=== PATIENT | female | born 1995 | race Caucasian/White ===

== ENCOUNTER 2018-02-26 15:45 | Emergency (ER) | payer OTHER ==
--- NOTE | 2018-02-26 16:15 | ED ---
Abdominal Pain/Female - HPI Summary HPI Summary: This patient is a 22 year old F presenting to [facility] accompanied by her friend with a chief complaint of intermittent abdominal pain, nausea, vomiting, decreased appetite, and fullness worsening over the past few years; however in the past month she reports worsening symptoms with fatigue and lightheadedness. She reports recent increase in thirst and urination (quantity, not frequency). Her last normal BM was this morning. LNMP began yesterday. Denies fever, diarrhea, rectal bleeding, black stools, and SOB. Patient reports and incomplete workup for her symptoms with a diagnosis of Celiacs. - History of Current Complaint Chief Complaint: EDAbdPain Stated Complaint: ABD PAIN Time Seen by Provider: 02/26/18 16:02 Hx Obtained From: Patient Onset/Duration: Gradual Onset, Other - years Timing: Intermittent Episode Lasting Severity Currently: None Pain Intensity: 0 Location: Diffuse Aggravating Factor(s): Food Alleviating Factor(s): Nothing Associated Signs and Symptoms: Positive: Urinary Symptoms, Decreased Appetite, Nausea, Vomiting. Negative: Blood in Stool Allergies/Adverse Reactions: Allergies Allergy/AdvReac Type Severity Reaction Status Date / Time Sulfa (Sulfonamide Allergy Severe Hives Verified 02/26/18 15:56 Antibiotics) PMH/Surg Hx/FS Hx/Imm Hx Endocrine/Hematology History: Denies: Hx Diabetes Respiratory History: Denies: Hx Asthma GI History: Reports: Other GI Disorders - Celiacs EENT History: Denies: Hx Deafness - Surgical History Surgery Procedure, Year, and Place: none Infectious Disease History: No Infectious Disease History: Denies: Traveled Outside the [place] in Last 30 Days - Family History Known Family History: Positive: Other - peptic ulcers - Social History Occupation: Student Hx Substance Use: No Substance Use Type: Reports: None Hx Tobacco Use: No Smoking Status (MU): Never Smoked Tobacco Review of Systems Constitutional: Other - lightheaded Positive: Fatigue. Negative: Fever Negative: Shortness Of Breath Gastrointestinal: Negative - rectal bleeding Positive: Abdominal Pain, Vomiting, Nausea, Other - decreased appetite. Negative: Diarrhea All Other Systems Reviewed And Are Negative: Yes Physical Exam - Summary Physical Exam Summary: VITAL SIGNS: Reviewed. GENERAL: Patient is a well-developed and nourished female who is lying comfortable in the stretcher. Patient is not in any acute respiratory distress. HEAD AND FACE: No signs of trauma. No ecchymosis, hematomas or skull depressions. No sinus tenderness. EYES: PERRLA, EOMI x 2, No injected conjunctiva, no nystagmus. EARS: Hearing grossly intact. Ear canals and tympanic membranes are within normal limits. MOUTH: Oropharynx within normal limits. NECK: Supple, trachea is midline, no adenopathy, no JVD, no carotid bruit, no c- spine tenderness, neck with full ROM. CHEST: Symmetric, no tenderness at palpation LUNGS: Clear to auscultation bilaterally. No wheezing or crackles. CVS: Tachycardic rate and regular rhythm, S1 and S2 present, no murmurs or gallops appreciated. ABDOMEN: Soft, non-tender. No signs of distention. No rebound no guarding, and no masses palpated. Bowel sounds are normal. EXTREMITIES: FROM in all major joints, no edema, no cyanosis or clubbing. NEURO: Alert and oriented x 3. No acute neurological deficits. Speech is normal and follows commands. SKIN: Dry and warm Triage Information Reviewed: Yes Vital Signs On Initial Exam: Initial Vitals Temp Pulse Resp BP Pulse Ox 98.0 F 90 16 129/81 98 02/26/18 15:52 02/26/18 15:52 02/26/18 15:52 02/26/18 15:52 02/26/18 15:52 Vital Signs Reviewed: Yes Diagnostics - Vital Signs Vital Signs Temp Pulse Resp BP Pulse Ox 02/26/18 15:52 98.0 F 90 16 129/81 98 - Laboratory Result Diagrams: 02/26/18 16:29 02/26/18 16:29 Lab Statement: Any lab studies that have been ordered have been reviewed, and results considered in the medical decision making process. - Radiology Abdomen XR Radiology Interpretation Completed By: Radiologist - NONSPECIFIC BOWEL GAS PATTERN. LARGE AMOUNT OF STOOL THROUGHOUT THE COLON. ED Physician has reviewed this report. Abdominal Pain Fem Course/Dx - Course Course Of Treatment: This patient is a 22 year old F presenting to [facility] accompanied by her friend with a chief complaint of intermittent abdominal pain , nausea, vomiting, decreased appetite, and fullness worsening over the past few years; however in the past month she reports worsening symptoms with fatigue and lightheadedness. She reports recent increase in thirst and urination (quantity, not frequency). Her last normal BM was this morning. LNMP began yesterday. Denies fever, diarrhea, rectal bleeding, black stools, and SOB. Patient reports and incomplete workup for her symptoms with a diagnosis of Celiacs. In the ED course the patient was given IV fluids I also ordered Zofran for the nausea. Patient refused this offer. Patient reports that she doesnt want to take any medications. I had a long conversation with the patient that she came into the emergency room because of nausea vomiting however she does want to take any medications to stop the nausea and vomiting. The patient understands however she refused to take the medication. Blood work without any significant abnormality. Urinalysis negative for UTI. She stated complaint of headache therefore she was given Toradol and she took the medication. Note the patient is feeling better. She is eating and drinking and she has no other complaints. X-ray of the abdomen impression: Constipation. Therefore the patient was encouraged to take stool softeners and she understands and agrees. She also agrees to the Prescription for Zofran. At this point since the patient is eating and drinking without any nausea vomiting she will be discharged home with follow-up with primary care physician. Patient is hemodynamically stable alert and oriented 3. I discussed all the findings and test results with the patient. Patient was instructed to return to the emergency room immediately if any of the symptoms return or worsens. Plan of care was discussed with the patient and understands and agrees. All questions were answered at patient satisfaction. There were no further complaints or concerns. Lung exam before discharge: CTA B/L. Good air exchange. No wheezing or crackles heard. CVS: S1 and S2 present. No murmurs appreciated. Patient is alert and oriented x 3. Patient is hemodynamically stable. Patient will be discharged home with follow up PCP in the next 2-3 days - Diagnoses Provider Diagnoses: Nausea & vomiting, Constipation Discharge - Sign-Out/Discharge Documenting (check all that apply): Patient Departure - discharge - Discharge Plan Condition: Stable Disposition: HOME Prescriptions: Ondansetron ODT TAB* [Zofran 4 MG Odt TAB*] 4 mg PO Q6H PRN #10 tab.odt PRN Reason: Nausea Patient Education Materials: Constipation (ED), Acute Nausea and Vomiting (ED) Referrals: [facility], [facility] - Valentin CHOWDHURY [Medical Doctor] - 2 Days Additional Instructions: RETURN TO THE EMERGENCY DEPARTMENT FOR CHANGING OR WORSENING SYMPTOMS. - Billing Disposition and Condition Condition: STABLE Disposition: Home - Attestation Statements Document Initiated by Scribe: Yes Documenting Scribe: Vera Lugo Provider For Whom Марина is Documenting (Include Credential): Alexander Parmar MD Scribe Attestation: IVera, scribed for Alexander Parmar MD on 02/26/18 at 1846. Scribe Documentation Reviewed: Yes Provider Attestation: The documentation as recorded by the chiquiibVera soria accurately reflects the service I personally performed and the decisions made by me, Alexander Parmar MD
[2018-02-26] MEDS ORDERED: NS 0.9% 1000 ML* 1,000 ML IV ONE (16:18)
[2018-02-26] MEDS ORDERED: Ondansetron INJ* 2 MG/ML VIAL IV ONE (16:18)
[2018-02-26 16:35] LABS: ABS Basophils 0.1 10^3/ul (0-0.2); ABS Eosinophils 0 10^3/ul (0-0.6); ABS Lymphocytes 1.6 10^3/ul (1.0-4.8); ABS Monocytes 0.4 10^3/ul (0-0.8); ABS Neutrophils 3.7 10^3/ul (1.5-7.7); ABS Nucleated RBC 0 10^3/ul; Eosinophil % 0.3 % (0-6); Hematocrit 40 % (35-47); Hemoglobin 13.4 g/dl (12.0-16.0); Lymphocyte % 27.2 % (25-47); Mean Corpuscular HGB Conc 34 g/dl (31-36); Mean Corpuscular Hemoglobin 31 pg (27-31); Mean Corpuscular Volume 92 fL (80-97); Mean Platelet Volume 8.3 um3 (7.4-10.4); Nucleated Red Blood Cells % 0; Platelet Count 234 10^3/ul (150-450); Red Blood Count 4.33 10^6/ul (4.00-5.40); Red Cell Distribution Width 13 % (10.5-15); White Blood Count 5.8 10^3/ul (3.5-10.8)
[2018-02-26 16:54] LABS: EGFR Non-African American 117.1 (>60)
--- NOTE | 2018-02-26 17:34 | RAD ---
HISTORY: Nausea COMPARISONS: None VIEWS: Frontal supine and upright views of the abdomen. FINDINGS: BOWEL: There is a nonspecific bowel gas pattern, with nondilated small bowel gas noted. There is a large amount of stool within the colon. CALCULI: There are no abnormal calculi. BONES AND SOFT TISSUES: There are no osseous abnormalities. OTHER FINDINGS: The lung bases are clear. There is no subphrenic gas. IMPRESSION: NONSPECIFIC BOWEL GAS PATTERN. LARGE AMOUNT OF STOOL THROUGHOUT THE COLON
[2018-02-26 18:02] LABS: Urine Appearance Clear; Urine Blood 1+ (Negative); Urine Color Straw; Urine Ketones Negative (Negative); Urine Protein Negative (Negative); Urine Red Blood Cell Trace(0-2/hpf) (Absent); Urine Specific Gravity 1.005 (1.010-1.030); Urine Urobilinogen Negative (Negative); Urine White Blood Cell Absent (Absent)
[2018-02-26] MEDS ORDERED: Ketorolac INJ* 30 MG/ML 1 ML VIAL IV PUSH ONE (18:02)
[2018-02-26 18:13] VITALS: BP 130/88
== END 2018-02-26 18:29 | disposition home or self-care (01) ==
LOC: ED 15:45
DX: K59.00 Constipation, unspecified (principal); R11.2 Nausea with vomiting, unspecified; R53.83 Other fatigue; R10.9 Unspecified abdominal pain
CPT/HCPCS: 36415; 74019; 80053; 81003; 81015; 83605; 83690; 83735; 84702; 85025; 86140; 87086; 96374; 99282; J1885; J2405